=== PATIENT | male | born 2000 | race Hispanic/Latino ===

== ENCOUNTER → 2021-04-12 | Day surgery (SDC) | payer OTHER ==
[2021-04-10 12:15] LABS: BASOPHILS % 0.6 % (0.0-1.0); EOSINOPHILS # (AUTO) 0.1 (0.0-0.4); EOSINOPHILS % 2.1 % (0.0-6.0); HEMATOCRIT 46.7 % (38.2-49.6); HEMOGLOBIN 15.6 g/dL (14.0-18.0); LYMPHOCYTES # (AUTO) 1.6 (1.0-3.2); LYMPHOCYTES % 23.7 % (18.0-39.1); MEAN CORPUSCULAR HGB CONC 33.4 g/dL (31-35); MONOCYTES # (AUTO) 0.4 (0.2-0.8); MONOCYTES % 6.5 % (4.4-11.3); NEUTROPHILS # (AUTO) 4.4 (2.1-6.9); NEUTROPHILS % 66.9 % (38.7-80.0); PLATELET COUNT 252 x10e3/uL (140-360); RED BLOOD COUNT 5.99 x10e6/uL (4.3-5.7); RED CELL DISTRIBUTION WIDTH 13.6 % (11.7-14.4)
[~2021-04-12] MED LIST: DOCUSATE SODIU100 MG PO; FENTANYL CITRATE/PF 100MCG/2 ML INJ ONE; HYDROXYZIN10 MG/5 ML PO; HYDROXYZINE HCL25 MG PO; LIDOCAINE HCL 2% LOCAL INJ 5 ML SDV VIAL INJ ONE; MIDAZOLAM HCL 2 MG/2 ML VIAL ONE; OMEPRAZOLE40 MG PO; PROPOFOL IV EMULSION 10 MG/ML 20 ML VIAL ONE; VIMPAT150 MG PO
[2021-04-12 08:50] VITALS: BP 123/90
== END | disposition home or self-care (01) ==
LOC: OR 07:02
PROVIDERS: ATTEND Internal Medicine Gastroenterology
DX: K62.89 Other specified diseases of anus and rectum (principal); K64.8 Other hemorrhoids; K25.3 Acute gastric ulcer without hemorrhage or perforation; K21.9 Gastro-esophageal reflux disease without esophagitis; K76.0 Fatty (change of) liver, not elsewhere classified; A04.8 Other specified bacterial intestinal infections; Z71.3 Dietary counseling and surveillance; E66.9 Obesity, unspecified; I10 Essential (primary) hypertension; I45.4 Nonspecific intraventricular block; R56.9 Unspecified convulsions; F79 Unspecified intellectual disabilities; J98.4 Other disorders of lung; I37.1 Nonrheumatic pulmonary valve insufficiency; Z01.810 Encounter for preprocedural cardiovascular examination; Z01.812 Encounter for preprocedural laboratory examination; Z20.822 Contact with and (suspected) exposure to COVID-19; Z79.899 Other long term (current) drug therapy; Z68.37 Body mass index [BMI] 37.0-37.9, adult; Z86.16 Personal history of COVID-19
CPT/HCPCS: 36415; 45380; 85025; 93005; J2001; J2250; J2704; J3010; U0002; 45378

== ENCOUNTER → 2022-06-05 | Outpatient (CLI) | payer OTHER ==
[~2022-06-05] MED LIST changes: -FENTANYL CITRATE/PF 100MCG/2 ML INJ ONE; +IOPAMIDOL 370 MG/ML 100 ML INFUS..BTL INJ ONE; -LIDOCAINE HCL 2% LOCAL INJ 5 ML SDV VIAL INJ ONE; +LORAZEPAM INJ 2 MG/ML VIAL ONE; -MIDAZOLAM HCL 2 MG/2 ML VIAL ONE; -PROPOFOL IV EMULSION 10 MG/ML 20 ML VIAL ONE
[2022-06-05 14:24] LABS: CREATININE, SERUM 0.58 mg/dL (0.72-1.25)
== END ==
LOC: CT 13:07
PROVIDERS: ATTEND Internal Medicine Gastroenterology
DX: R70.0 Elevated erythrocyte sedimentation rate (principal)
CPT/HCPCS: 36415; 74177; 82565; 84520; J2060; Q9967

== ENCOUNTER → 2022-08-09 | Day surgery (SDC) | payer OTHER ==
[~2022-08-09] MED LIST changes: +CETIRIZINE HCL10 M1; +CETIRIZINE HCL10 MG PO; -IOPAMIDOL 370 MG/ML 100 ML INFUS..BTL INJ ONE; +LACTATED RINGER'S 1,000 ML ONE; +LIDOCAINE HCL 2% LOCAL INJ 5 ML SDV VIAL INJ ONE; -LORAZEPAM INJ 2 MG/ML VIAL ONE; +LOSARTAN POTASS25 MG PO; +MIDAZOLAM HCL 2 MG/2 ML VIAL ONE; +PROPOFOL IV EMULSION 10 MG/ML 20 ML VIAL ONE
[2022-08-09 09:30] LABS: BASOPHILS % 0.6 % (0.0-1.0); EOSINOPHILS # (AUTO) 0.1 (0.0-0.4); EOSINOPHILS % 2.5 % (0.0-6.0); LYMPHOCYTES # (AUTO) 1.3 (1.0-3.2); MEAN CORPUSCULAR HGB CONC 33.3 g/dL (31-35); MEAN CORPUSCULAR VOLUME 77.9 fL (81-99); MONOCYTES # (AUTO) 0.3 (0.2-0.8); MONOCYTES % 5.5 % (4.4-11.3); NEUTROPHILS # (AUTO) 3.5 (2.1-6.9); NEUTROPHILS % 67.2 % (38.7-80.0); PLATELET COUNT 248 x10e3/uL (140-360); RED BLOOD COUNT 5.78 x10e6/uL (4.3-5.7); RED CELL DISTRIBUTION WIDTH 13.7 % (11.7-14.4)
[2022-08-09 12:00] VITALS: BP 136/76; PULSE 73; RESP 16; O2SAT 100
== END | disposition home or self-care (01) ==
LOC: ENDO 08:43
PROVIDERS: ATTEND Internal Medicine Gastroenterology
DX: K62.5 Hemorrhage of anus and rectum (principal); D12.7 Benign neoplasm of rectosigmoid junction; L53.8 Other specified erythematous conditions; K59.00 Constipation, unspecified; K64.8 Other hemorrhoids; K64.4 Residual hemorrhoidal skin tags; R80.9 Proteinuria, unspecified; K21.9 Gastro-esophageal reflux disease without esophagitis; R70.0 Elevated erythrocyte sedimentation rate; R76.8 Other specified abnormal immunological findings in serum; F84.0 Autistic disorder; G40.909 Epilepsy, unspecified, not intractable, without status epilepticus; Q90.9 Down syndrome, unspecified; I10 Essential (primary) hypertension; E78.5 Hyperlipidemia, unspecified; R01.1 Cardiac murmur, unspecified; F41.9 Anxiety disorder, unspecified; Z88.1 Allergy status to other antibiotic agents; Z88.8 Allergy status to other drugs, medicaments and biological substances; Z79.899 Other long term (current) drug therapy; Z68.39 Body mass index [BMI] 39.0-39.9, adult; Z87.19 Personal history of other diseases of the digestive system; Z86.19 Personal history of other infectious and parasitic diseases
CPT/HCPCS: 36415; 45331; 85025; 88305; 93005; J2001; J2250; J2704; J7121; 45330; 45380; 45384